=== PATIENT | female | born 1960 | race Caucasian/White ===

== ENCOUNTER 2019-08-04 05:44 | Day surgery (SDC) | payer BC ==
[~2019-08-04 05:44] MED LIST: Buffered Lidocaine 1% SYRIN* 1 ML/SYRINGE INTRADERM ONE
[2019-08-04] MEDS ORDERED: Lactated Ringers 1000 ML Bag* 1,000 ML IV SCH (06:00)
[2019-08-04] MEDS ORDERED: Clindamycin 900 MG/D5W BAG(*) 900 MG/50 ML BAG IVPB ONE (06:19)
[2019-08-04] MEDS ORDERED: Buffered Lidocaine 1% SYRIN* 1 ML/SYRINGE INTRADERM ONE (06:19)
[2019-08-04] MEDS ORDERED: Lidocaine 2% PF * 5 ML VIAL ONE (07:11)
[2019-08-04] MEDS ORDERED: Midazolam* 1 MG/ML 2 ML VIAL (2 MG) ONE (07:11)
[2019-08-04] MEDS ORDERED: Propofol* 10 MG/ML 20 ML BTL ONE ×2 (07:11→08:43)
[2019-08-04] MEDS ORDERED: fentaNYL* 50 MCG/ML 2 ML VIAL (100 MCG VIAL) ONE (07:11)
[2019-08-04] MEDS ORDERED: Bupivacaine 0.25% SDV PF* 10 ML VIAL INJ ONE (07:12)
[2019-08-04] MEDS ORDERED: Naloxone* 0.4 MG/ML 1 ML VIAL IV PRN ×2 (08:04→08:05)
[2019-08-04] MEDS ORDERED: Ondansetron INJ* 2 MG/ML VIAL IV PRN (08:05)
[2019-08-04 08:56] VITALS: BP 141/80
== END 2019-08-04 08:54 | disposition home or self-care (01) ==
LOC: OR 05:44
PROVIDERS: ATTEND Plastic Surgery
DX: M65.332 Trigger finger, left middle finger (principal)
CPT/HCPCS: J2250; J2704; J3010; J3490